=== PATIENT | male | born 1985 | race Caucasian/White ===

== ENCOUNTER 2021-10-10 06:05 | Emergency (ER) | payer OTHER ==
[~2021-10-10] VITALS: Ht 185.4 cm; Wt 90.7 kg
[~2021-10-10 06:05] MED LIST: Norco 10-325 T1 EACH PO; Zofran Odt4 MG SL
[2021-10-10 08:53] LABS: Source, Urine Clean Catch
[2021-10-10 09:03] LABS: Appearance, Urine Clear (Clear); Bilirubin, Urine Neg (Neg); Blood, Urine Neg (Neg); Color, Urine Yellow (P-Yellow); Glucose Qualitative, Urine Neg (Neg); Ketones, Urine Neg (Neg); Leukocyte Esterase, Urine Neg (Neg); Nitrite, Urine Neg (Neg); Protein, Urine Neg (Neg); Specific Gravity, Urine 1.015 (1.003-1.022); Urobilinogen, Urine NORM (Normal)
[2021-10-10] MEDS ORDERED: ONDA4ODT MM (10:23)
== END 2021-10-10 10:44 | disposition home or self-care (01) ==
LOC: ER 06:05
PROVIDERS: Physician Assistant
DX: R11.2 Nausea with vomiting, unspecified (principal); F12.90 Cannabis use, unspecified, uncomplicated
CPT/HCPCS: 36415; 81003; 93005; 93010; 96361; 96374; 96375; 99285-25; J1170; J1630; J1885; J2405; J7030